=== PATIENT | female | born 1935 | race African-American/Black ===

== ENCOUNTER 2021-03-24 17:13 | Inpatient (IN) | payer MEDICARE, BC ==
[~2021-03-24] VITALS: Ht 162.6 cm; Wt 61.2 kg
[2021-03-24 17:57] LABS: BASOPHILS % (AUTO) 0.3 % (0.0-2.0); EOSINOPHILS % (AUTO) 0.4 % (0.0-6.0); HEMATOCRIT 41 % (33-45); HEMOGLOBIN 13.4 g/dL (11.5-14.8); LYMPHOCYTES % (AUTO) 15.4 % (20.0-44.0); MEAN CORPUSCULAR HGB CONC 32 g/dl (31.0-36.0); MEAN CORPUSCULAR VOLUME 91 fL (82-100); MONOCYTES # (AUTO) 1.4 K/uL (0.1-1.30); MONOCYTES % (AUTO) 10.8 % (2.0-12.0); NEUTROPHILS # (AUTO) 9.4 K/uL (1.8-8.9); NEUTROPHILS % (AUTO) 73.1 % (43.0-81.0); PLATELET COUNT (AUTO) 216 K/uL (150-450); RED BLOOD CELL COUNT(AUTO) 4.56 MIL/uL (4.0-5.2); WHITE BLOOD COUNT (AUTO) 12.9 K/uL (4.3-11.0)
[2021-03-24 17:58] LABS: BILIRUBIN,URINE Negative (NEGATIVE); COLOR,URINE YELLOW (YELLOW); LEUKOCYTE ESTERASE ,URINE Negative (NEGATIVE); NITRITE, URINE Negative (NEGATIVE); PH,URINE 5.5 (5.0-8.0); PROTEIN,URINE Negative (NEGATIVE); UGLUCOSE Negative (NEGATIVE); UROBILINOGEN,URINE 0.2 EU/dL (0.2)
--- NOTE | 2021-03-24 17:59 | NUR ---
85 years old female sent to er for evaluation, patient sedated unable to obtain history, lab, urine collected, placed on fashion adviser, continuous pulse oximeter.
[2021-03-24 18:09] LABS: ACETAMINOPHEN < 10 ug/ml (10-30); ALANINE AMINOTRANSFERASE 13 U/L (12-78); ALCOHOL, BLOOD < 3 mg/dL (0-0); ALKALINE PHOSPHATASE 90 U/L (46-116); ASPARTATE AMINOTRANSFERASE 11 U/L (15-37); BILIRUBIN,DIRECT 0.2 mg/dL (0.0-0.2); BILIRUBIN,TOTAL 1.1 mg/dL (0.2-1.0); CALCIUM, SERUM 12.4 mg/dL (8.5-10.1); CARBON DIOXIDE 26 mmol/L (21-32); CHLORIDE 105 mmol/L (98-107); GLUCOSE 110 mg/dL (74-106); POTASSIUM 4.6 mmol/L (3.5-5.1); SODIUM SERUM 141 mmol/L (136-145); TOTAL PROTEIN, SERUM 6.7 g/dL (6.4-8.2); UREA NITROGEN, BLOOD 17 mg/dL (7-18)
[2021-03-24] MEDS ORDERED: NA P133E RC (18:14)
[2021-03-24] MEDS ORDERED: RISP0.5T65 PO (18:14)
[2021-03-24] MEDS ORDERED: CALC3.7S NS (18:14)
[2021-03-24] MEDS ORDERED: MULT-188 PO (18:14)
[2021-03-24] MEDS ORDERED: ATOR40TA PO (18:14)
[2021-03-24] MEDS ORDERED: CINA30TA2 PO (18:14)
[2021-03-24] MEDS ORDERED: PANT40TA49 PO (18:14)
[2021-03-24] MEDS ORDERED: AMLO10TA4 PO (18:14)
[2021-03-24] MEDS ORDERED: BISA10SU11 RC (18:14)
[2021-03-24] MEDS ORDERED: METF-440 PO (18:14)
[2021-03-24] MEDS ORDERED: PSYL0.525 PO (18:14)
[2021-03-24] MEDS ORDERED: ACET325T53 PO (18:14)
[2021-03-24] MEDS ORDERED: MAGN400O6 PO (18:14)
[2021-03-24] MEDS ORDERED: DOCU-141 PO (18:14)
[2021-03-24] MEDS ORDERED: AMIN887L PO (18:14)
--- NOTE | 2021-03-24 18:40 | NUR ---
MOVE SHEET SUBMITTED.
--- NOTE | 2021-03-24 18:42 | NUR ---
covid swab collected/sent.
--- NOTE | 2021-03-24 19:13 | NUR ---
patient very confused removed all clothes, report given to 7pm RN at bedside all questions answered.
--- NOTE | 2021-03-24 19:15 | NUR ---
rec'd report from karli Somers for sugey
--- NOTE | 2021-03-24 20:04 | NUR ---
RUBEN 222-B
--- NOTE | 2021-03-24 20:12 | NUR ---
CALLED [facility] FIELD MERCHANDISER AND LEFT A MESSAGE FOR REQUESTING PSYCH EVALUATION.
--- NOTE | 2021-03-24 20:15 | NUR ---
SPOKE TO WELFARE MANAGER BENI REGARDING PSYCH EVAL ETA 1HR.
--- NOTE | 2021-03-24 21:52 | NUR ---
attempted to give report, rn with pt.
[2021-03-24] MEDS ORDERED: DEXTROSE 50%-WATER 50 ML DISP.SYRIN IV PRN (22:00)
[2021-03-24] MEDS: ATORVASTATIN 40 MG TABLET PO SCH (22:00)
--- NOTE | 2021-03-24 22:08 | NUR ---
gave report to karli Costello for sugey
[2021-03-24 22:45] VITALS: BP 134/63
[2021-03-24] MEDS: BLOOD SUGAR DIAGNOSTIC 1 EACH STRIP IN SCH (23:15)
--- NOTE | 2021-03-24 23:17 | NUR ---
RN NOTE: HELD LIPITOR PATIENT IS SLEEPING AT THIS TIME, VERY CONFUSED, UNABLE TO FOLLOW DIRECTIONS, ATTEMPTED TO ENCOURAGE PO INTAKE BUT PATIENT IS IN A DEEP SLEEP. HELD LIPITOR AT THIS TIME. WILL MONITOR CLOSELY FOR ANY CHANGE OF CONDITION.
[2021-03-24] MEDS ORDERED: LORAZEPAM 0.5 MG TABLET PO PRN (23:30)
[2021-03-24] MEDS ORDERED: ZOLPIDEM TARTRATE 5 MG TABLET PO PRN (23:30)
[2021-03-24] MEDS ORDERED: ACETAMINOPHEN 325 MG TABLET PO PRN (23:30)
[2021-03-24] MEDS ORDERED: BLOOD SUGAR DIAGNOSTIC 1 EACH STRIP IN ONE (23:30)
[2021-03-24] MEDS ORDERED: MAGNESIUM HYDROXIDE 30 ML UDC PO PRN (23:30)
--- NOTE | 2021-03-25 01:30 | NUR ---
GPS CORPORATE COMMUNICATIONS SPECIALIST NOTE RECEIVED 85 Y/O FEMALE PATIENT FROM [facility]. PATIENT ARRIVED ON GPS UNIT AT 2230 VIA GURNEY WITH NURSES. PATIENT ADMITTED ON A 5150 HOLD FOR DTS/GD. PER HOLD WHEN PATIENT ARRIVED AT [facility] ER, SHE WAS YELLING, SCREAMING & EXTREMELY CONFUSED. PER SNF RN RICHARD, PATIENT BROKE HER GLASSES TODAY AT THE FACILITY & THEN USED HER GLASSES TO CUT HER RIGHT ARM, SHE HAS 3 SCRATCHES TO HER UPPER RIGHT ARM FROM CUTTING HERSELF WITH HER EYE GLASSES. SHE HAS BEEN TAKING OFF HER CLOTHES WHILE IN ER, SCREAMING, REFUSING TO GIVE ANY INFORMATION. SHE IS NOT SAFE FOR DISCHARGE, SHE IS IMPULSIVE & UNPREDICTABLE. UPON FACE TO FACE ASSESSMENT PATIENT IS A & O X 1, EXTREMELY CONFUSED, FORGETFUL, ANXIOUS, AGITATED, UNPREDICTABLE, RESTLESS, DISHEVELED, DISORGANIZED, NO S/S OF PAIN. NO S/S OF APPARENT DISTRESS NOTED. PATIENT DENIES SI AT THIS TIME. PER SNF NURSE EDGARDO REPORT, PT. IS AMBULATORY WITH WALKER/UNSTEADY, HIGH FALL RISK. INCONTINENT. PATIENT REFUSED TO SIGNS ANY PAPER WORK DUE TO CURRENT MENTAL STATUS. PATIENT ADVISED OF HIS HOLD AND RIGHTS BOOKLET GIVEN. PATIENT IS UNDER THE PSYCHIATRIC CARE OF DR. HORNE AND THE MEDICAL CARE OF AIMEE PATTERSON. PATIENT BELONGINGS WERE INVENTORIED AND CHECKED FOR CONTRABAND. PATIENT CAME WITH COPY OF ADVANCED DIRECTIVES (POLTS), FULL BODY SKIN ASSESSMENT DONE, PATIENT BECOMES UNCOOPERATIVE & AGITATED AT TIMES. PATIENT ORIENTATED TO ROOM, FLOOR, AND STAFF. PATIENT EDUCATED ON THE USE OF THE CALL LIGHT. PATIENT BED SIDE RAILS ARE UP X 2 FOR SAFETY. PATIENT IS UNABLE TO PROVIDE ANY INFORMATION ABOUT COVID 19 VACCINE. BED IS LOW/LOCKED. BED ALARM IS ON. I WILL CONTINUE TO MONITOR THIS PATIENT Q 15 MIN WITH THE HELP OF STAFF TO MAINTAIN SAFETY.
--- NOTE | 2021-03-25 01:43 | NUR ---
RN NOTE PATIENT HAS COPY OF POLTS, NOTIFIED LEONARDO YU & LEONARDO ORDERED TO FOLLOW POLTS INSTRUCTIONS FOR CODE STATUS. PER POLTS PATIENT IS DNR/DNI.
[2021-03-25] MEDS ORDERED: Z GUARD REMEDY 4 OZ OINT TP PRN (02:30)
--- NOTE | 2021-03-25 06:58 | NUR ---
RN NOTE: FAMILY NOTIFIED CALLED TEIVN GUILLERMO (SISTER) AT [phone] & INFORMED HER ABOUT PATIENT'S ADMISSION AT [facility] GPS UNIT. TEVIN ALSO STATED THAT SHE WANTS DR. HORNE TO BE PATIENT'S PSYCHIATRIST DURING HER HOSPITAL STAY AT [facility], NOT DR. WILLS. PER TEVIN PATIENT WILL BE DNR/DNI, PER PATIENT'S WISH. CODE STATUS ORDER IN PLACE.
[2021-03-25] MEDS: PANTOPRAZOLE 40 MG TABLET.DR PO SCH (07:30)
[2021-03-25] MEDS: BLOOD SUGAR DIAGNOSTIC 1 EACH STRIP IN SCH ×4 (07:30→22:17)
--- NOTE | 2021-03-25 07:39 | NUR ---
RN NOTE PATIENT REFUSED AM LABS DESPITE OF EXPLANATIONS, PATIENT KEPT SAYING," NOT TODAY,MAY BE TOMORROW."
--- NOTE | 2021-03-25 07:40 | NUR ---
RN NOTE ENDORSED TO AM RN THAT PATIENT'S SISTER REQUESTED TO HAVE DR. HORNE PATIENT'S PSYCHIATRIST.
[2021-03-25 08:00] VITALS: BP 122/63
[2021-03-25] MEDS: DOCUSATE SODIUM 100 MG CAPSULE PO SCH ×3 (09:00→21:52)
[2021-03-25] MEDS: CALCITONIN,SALMON,SYNTHETIC 3.7 ML SPRAY.PUMP NS SCH (09:00)
[2021-03-25] MEDS: MULTIVITAMINS,THERAGRAN 1 UDTAB TABLET PO SCH (09:00)
[2021-03-25] MEDS: AMLODIPINE BESYLATE 10 MG TABLET PO SCH ×2 (09:00→09:54)
[2021-03-25] MEDS: PROSOURCE / PROSTAT (PYXIS) 30 ML UDC PO SCH (09:00)
[2021-03-25] MEDS: CINACALCET HCL 30 MG TABLET PO SCH ×3 (09:00→17:00)
[2021-03-25] MEDS: Z GUARD REMEDY 2 OZ OINT TP SCH (09:53)
[2021-03-25] MEDS: DIVALPROEX SODIUM 125 MG CAP.SPRINK PO SCH ×2 (13:00→17:00)
[2021-03-25 16:00] VITALS: BP 129/66
[2021-03-25] MEDS: risperiDONE 1 MG TABLET PO SCH (17:00)
[2021-03-25 20:31] VITALS: BP 122/63
[2021-03-25] MEDS: ATORVASTATIN 40 MG TABLET PO SCH (21:52)
--- NOTE | 2021-03-25 22:00 | NUR ---
GPS RN NOTE AMBIEN 5 MG PO GIVEN FOR INSOMNIA. CONTINUE TO MONITOR HER.
[2021-03-25] MEDS: INSULIN REGULAR, HUMAN 100 UNIT/ML 3 ML VIAL SQ PRN (22:19)
--- NOTE | 2021-03-25 23:00 | NUR ---
GPS RN NOTE PT FALL BACK TO SLEEP, IN HER BED.
[2021-03-26] MEDS: PANTOPRAZOLE 40 MG TABLET.DR PO SCH (07:30)
[2021-03-26] MEDS: BLOOD SUGAR DIAGNOSTIC 1 EACH STRIP IN SCH ×4 (07:47→22:15)
[2021-03-26 08:00] VITALS: BP 119/56
[2021-03-26] MEDS: AMLODIPINE BESYLATE 10 MG TABLET PO SCH (09:00)
[2021-03-26] MEDS: DOCUSATE SODIUM 100 MG CAPSULE PO SCH ×2 (09:00→21:00)
[2021-03-26] MEDS: risperiDONE 1 MG TABLET PO SCH ×2 (09:00→17:00)
[2021-03-26] MEDS: MULTIVITAMINS,THERAGRAN 1 UDTAB TABLET PO SCH (09:00)
[2021-03-26] MEDS: CINACALCET HCL 30 MG TABLET PO SCH ×2 (09:00→17:00)
[2021-03-26] MEDS: DIVALPROEX SODIUM 125 MG CAP.SPRINK PO SCH ×3 (09:00→17:00)
[2021-03-26] MEDS: CALCITONIN,SALMON,SYNTHETIC 3.7 ML SPRAY.PUMP NS SCH (09:00)
[2021-03-26] MEDS: PROSOURCE / PROSTAT (PYXIS) 30 ML UDC PO SCH (09:00)
[2021-03-26] MEDS: Z GUARD REMEDY 2 OZ OINT TP SCH (09:04)
--- NOTE | 2021-03-26 11:00 | NUR ---
PT REFUSES MEDICATION AND NOURISHMENT. DR ELMA TINAJERO.
--- NOTE | 2021-03-26 12:12 | NUR ---
BLOOD SUGAR DONE 134. WILL NOT COVER AT THIS TIME PT IS NOT FOOD COMPLIANT. REFUSES TO EAT.
--- NOTE | 2021-03-26 14:18 | NUR ---
URINE COLLECTED FOR CULTURE. LAB AWARE.
[2021-03-26 15:29] LABS: ALBUMIN 2.7 g/dL (3.4-5.0); BILIRUBIN,TOTAL 0.9 mg/dL (0.2-1.0); CALCIUM, SERUM 11.7 mg/dL (8.5-10.1); CREATININE 1.1 mg/dL (0.6-1.3); POTASSIUM 3.9 mmol/L (3.5-5.1); TOTAL PROTEIN, SERUM 6.5 g/dL (6.4-8.2)
[2021-03-26 15:31] LABS: CHOLESTEROL 158 mg/dL (<200); HDL CHOLESTEROL 50 mg/dL (40-60); LDL 78 mg/dL (0-99); TRIGLYCERIDES 85 mg/dL (30-150)
[2021-03-26 16:00] VITALS: BP 136/73
--- NOTE | 2021-03-26 17:59 | NUR ---
BICYCLE REPAIR TECHNICIAN FOUND PATIENT ROLLING BLANKET INTO HER MOUTH. PT SHOWED REDNESS IN THE FACE. PATIENT STATES THAT SHE WAS CLEANING HER MOUTH. CHARGE NURSE AWARE. WILL ENDORSE ACCORDINGLY. NO SIGNS OF DISTRESS NOTED.
[2021-03-26 20:00] VITALS: BP 154/78
[2021-03-26] MEDS: ATORVASTATIN 40 MG TABLET PO SCH (21:50)
--- NOTE | 2021-03-26 21:50 | NUR ---
GPS RN NOTES: PATIENT REFUSED PM MEDS COLACE 100MG AND LIPITOR 40MG ORDERED. WILL CONTINUE TO MONITOR.
--- NOTE | 2021-03-27 06:57 | NUR ---
GPS RN CLOSING NOTE: PATIENT IS CURRENTLY SLEEPING COMFORTABLY IN BED. PATIENT SLEPT 5HR THIS SHIFT. PATIENT WAS NON COMPLIANT WITH MEDICATION THIS SHIFT. NO S/S OF DISTRESS, RESPIRATION EVEN AND UNLABORED WITH EQUAL RISE AND FALL OF THE CHEST, ON ROOM AIR. BED IN LOWEST POSITION AND LOCKED, SIDE RAILS UP X2. ALL PATIENT CARE NEEDS HAVE BEEN MET AT THIS TIME. WILL CONTINUE TO MONITOR AND ENDORSE TO AM SHIFT.
[2021-03-27] MEDS: BLOOD SUGAR DIAGNOSTIC 1 EACH STRIP IN SCH ×4 (07:42→21:39)
[2021-03-27] MEDS: PANTOPRAZOLE 40 MG TABLET.DR PO SCH (07:56)
[2021-03-27 08:00] VITALS: BP 133/68
[2021-03-27] MEDS: MULTIVITAMINS,THERAGRAN 1 UDTAB TABLET PO SCH (08:32)
[2021-03-27] MEDS: CINACALCET HCL 30 MG TABLET PO SCH ×2 (08:32→16:09)
[2021-03-27] MEDS: DIVALPROEX SODIUM 125 MG CAP.SPRINK PO SCH ×3 (08:32→16:09)
[2021-03-27] MEDS: DOCUSATE SODIUM 100 MG CAPSULE PO SCH ×2 (08:32→21:39)
[2021-03-27] MEDS: AMLODIPINE BESYLATE 10 MG TABLET PO SCH (08:34)
[2021-03-27] MEDS: risperiDONE 1 MG TABLET PO SCH ×2 (08:34→16:09)
[2021-03-27] MEDS: PROSOURCE / PROSTAT (PYXIS) 30 ML UDC PO SCH (08:37)
[2021-03-27] MEDS: Z GUARD REMEDY 2 OZ OINT TP SCH (08:38)
[2021-03-27] MEDS: CALCITONIN,SALMON,SYNTHETIC 3.7 ML SPRAY.PUMP NS SCH (09:26)
--- NOTE | 2021-03-27 10:07 | NUR ---
RN NOTE- PT UA CX RETURNED . UTI PRESENT. DR LEE ORDERED BACTRIM DS BID X 7 D. COMPLIED
[2021-03-27] MEDS: SULFAMETH/TRIMETH 800/160 MG 1 UDTAB TABLET PO SCH ×2 (11:30→21:00)
[2021-03-27] MEDS: INSULIN REGULAR, HUMAN 100 UNIT/ML 3 ML VIAL SQ PRN (11:56)
--- NOTE | 2021-03-27 13:43 | NUR ---
D/C Planning: KATHRYN received a call from Fallon at [facility]. KATHRYN was notified that the patient will not be able to return to the facility as they are unable to accommodate the patient's needs at this time. Fallon recommended that the patient be referred to [facility] and stated that the patient currently has 74 days left from Medicare. KATHRYN faxed clinicals to [facility], & [phone], for review.
[2021-03-27 15:04] LABS: BASOPHILS % (AUTO) 0.4 % (0.0-2.0); HEMATOCRIT 41 % (33-45); HEMOGLOBIN 13.1 g/dL (11.5-14.8); LYMPHOCYTES # (AUTO) 1.8 K/uL (0.8-4.8); LYMPHOCYTES % (AUTO) 15.7 % (20.0-44.0); MEAN CORPUSCULAR HGB CONC 32 g/dl (31.0-36.0); MEAN CORPUSCULAR VOLUME 92 fL (82-100); MONOCYTES # (AUTO) 1.2 K/uL (0.1-1.30); MONOCYTES % (AUTO) 10.5 % (2.0-12.0); NEUTROPHILS # (AUTO) 8.5 K/uL (1.8-8.9); NEUTROPHILS % (AUTO) 72.4 % (43.0-81.0); PLATELET COUNT (AUTO) 231 K/uL (150-450); RED BLOOD CELL COUNT(AUTO) 4.42 MIL/uL (4.0-5.2); WHITE BLOOD COUNT (AUTO) 11.7 K/uL (4.3-11.0)
--- NOTE | 2021-03-27 15:12 | NUR ---
D/C Planning: KATHRYN received a call from Claudia in admissions, at [facility]. Claudia notified KATHRYN that the patient has been accepted to [facility] (ph: [phone]).
[2021-03-27 15:24] LABS: ALBUMIN 2.5 g/dL (3.4-5.0); BILIRUBIN,TOTAL 0.8 mg/dL (0.2-1.0); CALCIUM, SERUM 11.9 mg/dL (8.5-10.1); CREATININE 1.1 mg/dL (0.6-1.3); POTASSIUM 4.2 mmol/L (3.5-5.1); TOTAL PROTEIN, SERUM 6.4 g/dL (6.4-8.2)
[2021-03-27 16:00] VITALS: BP 137/69
--- NOTE | 2021-03-27 19:30 | NUR ---
RN OPENING NOTE PATIENT SLEEPING, EASILY AROUSED WITH VERBAL AND TOUCH CUES. PATIENT IS CONFUSED, A/O X 1. PATIENT DID NOT WANT TO BE AWAKEN AGAIN AND SAYS SHE JUST WANT TO BE SLEEPING. PATIENT IS NOT IN ANY APPARENT DISTRESS. DENIES SI/HI AT THIS TIME. SAFETY MEASURES IN PLACE: BED IN LOCKED AND IN LOWEST POSITION, SIDE RAILS UP. WILL MONITOR PATIENT FOR SAFETY AND BEHAVIOR.
[2021-03-27 20:00] VITALS: BP 127/63
--- NOTE | 2021-03-27 21:40 | NUR ---
RN NOTE PATIENT REFUSED BACTRIM AND LIPITOR. PATIENT STATES THAT SHE SHOULD ONLY BE TAKING THE BACTRIM ONCE A DAY BECAUSE IT'S A VERY STRONG ANTIBIOTIC. I INFORMED HER THAT THIS IS FOR HER UTI, AND THAT SHE'S SUPPOSED TO GET A DOSE Q12 H ORDERED BY THE DOCTOR, EXPLAINED RISK AND BENEFITS WELL. STILL REFUSING. BS IS 115 MG/DL. NO COVERAGE GIVEN.
[2021-03-27] MEDS: ATORVASTATIN 40 MG TABLET PO SCH (21:44)
[2021-03-28] MEDS: PANTOPRAZOLE 40 MG TABLET.DR PO SCH (07:30)
[2021-03-28] MEDS: BLOOD SUGAR DIAGNOSTIC 1 EACH STRIP IN SCH ×4 (07:41→22:08)
[2021-03-28 08:00] VITALS: BP 113/50
[2021-03-28] MEDS: SULFAMETH/TRIMETH 800/160 MG 1 UDTAB TABLET PO SCH ×3 (08:02→21:22)
[2021-03-28] MEDS: DOCUSATE SODIUM 100 MG CAPSULE PO SCH ×3 (08:02→21:22)
[2021-03-28] MEDS: AMLODIPINE BESYLATE 10 MG TABLET PO SCH (08:03)
[2021-03-28] MEDS: CINACALCET HCL 30 MG TABLET PO SCH ×2 (08:04→17:00)
[2021-03-28] MEDS: MULTIVITAMINS,THERAGRAN 1 UDTAB TABLET PO SCH (08:05)
[2021-03-28] MEDS: risperiDONE 1 MG TABLET PO SCH ×2 (08:07→17:00)
[2021-03-28] MEDS: DIVALPROEX SODIUM 125 MG CAP.SPRINK PO SCH ×3 (08:07→17:00)
[2021-03-28] MEDS: CALCITONIN,SALMON,SYNTHETIC 3.7 ML SPRAY.PUMP NS SCH (08:11)
[2021-03-28] MEDS: PROSOURCE / PROSTAT (PYXIS) 30 ML UDC PO SCH (08:16)
[2021-03-28] MEDS: Z GUARD REMEDY 2 OZ OINT TP SCH (08:17)
--- NOTE | 2021-03-28 09:30 | NUR ---
Initial Discharge Plan: Pt would like to be D/C to a SNF. Pt is agreeable to be D/C to [facility] ([phone]). SW will work with the pt and the MD regarding appropriate discharge planning. SW will form a safe and proper discharge.
--- NOTE | 2021-03-28 12:15 | NUR ---
DR WILLS FILED A RIESE PETITION FOR PATIENT PATIENT REFUSES TO TAKE MEDICATION.. FAB IS SCHEDULED FOR TOMORROW 03/29/21. DR WILLS AWARE.
[2021-03-28 16:38] VITALS: BP 119/66
--- NOTE | 2021-03-28 18:00 | NUR ---
BS: 0730: 107 NC 1200: 106 NC 1700: 104 NC BLOOD SUGAR METER NOT TRANSMITTING INFO. NOC SHIFT RN AWARE
[2021-03-28 19:57] VITALS: BP 128/57
[2021-03-28] MEDS: ATORVASTATIN 40 MG TABLET PO SCH (22:00)
--- NOTE | 2021-03-28 22:00 | NUR ---
GPS-RN NOTES: MEDICATION REFUSAL PATIENT REFUSED SCHEDULED MEDS FOR TONIGHT BACTRIM, LIPITOR AND COLACE. DESPITE OF EDUCATION REGARDING MEDICATION COMPLIANCE BUT PATIENT CONTINUED TO REFUSE. WILL CONTINUE TO MONITOR.
[2021-03-29] MEDS: BLOOD SUGAR DIAGNOSTIC 1 EACH STRIP IN SCH ×4 (07:31→21:54)
[2021-03-29 08:00] VITALS: BP 129/68
--- NOTE | 2021-03-29 09:10 | NUR ---
Family Contact: SW received a call from pts sister, Gosia Collins, . Pts sister requested for SW to locate SNF closer to the family's home as the pts family lives in [place]. Pts sister agrees to [facility] if alternative SNF's are not accepting. SW will f/u with D/C update.
[2021-03-29] MEDS: PANTOPRAZOLE 40 MG TABLET.DR PO SCH (09:19)
[2021-03-29] MEDS: CINACALCET HCL 30 MG TABLET PO SCH ×2 (09:20→16:44)
[2021-03-29] MEDS: MULTIVITAMINS,THERAGRAN 1 UDTAB TABLET PO SCH (09:20)
[2021-03-29] MEDS: SULFAMETH/TRIMETH 800/160 MG 1 UDTAB TABLET PO SCH (09:20)
[2021-03-29] MEDS: DOCUSATE SODIUM 100 MG CAPSULE PO SCH ×2 (09:20→21:54)
[2021-03-29] MEDS: DIVALPROEX SODIUM 125 MG CAP.SPRINK PO SCH ×3 (09:20→16:44)
[2021-03-29] MEDS: risperiDONE 1 MG TABLET PO SCH ×2 (09:21→21:53)
[2021-03-29] MEDS: AMLODIPINE BESYLATE 10 MG TABLET PO SCH (09:21)
[2021-03-29] MEDS: PROSOURCE / PROSTAT (PYXIS) 30 ML UDC PO SCH (09:22)
[2021-03-29] MEDS: Z GUARD REMEDY 2 OZ OINT TP SCH (09:22)
[2021-03-29] MEDS: CALCITONIN,SALMON,SYNTHETIC 3.7 ML SPRAY.PUMP NS SCH (09:35)
--- NOTE | 2021-03-29 09:50 | NUR ---
D/C Planning: Per pts family request, KATHRYN faxed clinicals to alternative SNF closer to the family's home. KATHRYN faxed clinicals to [facility], , for review. KATHRYN will continue to F/U with D/C.
[2021-03-29] MEDS ORDERED: OLANZAPINE 10 MG VIAL IM PRN (15:00)
[2021-03-29] MEDS: AMOX/CLAVULANATE 875 MG TABLET PO SCH ×2 (15:09→23:45)
[2021-03-29 16:00] VITALS: BP 117/61
[2021-03-29] MEDS: INSULIN REGULAR, HUMAN 100 UNIT/ML 3 ML VIAL SQ PRN (17:17)
--- NOTE | 2021-03-29 17:39 | NUR ---
BS is 140 refused for 2 units of Humulin R.
[2021-03-29 19:56] VITALS: BP 137/67
[2021-03-29 20:10] VITALS: BP 137/67
[2021-03-29] MEDS: ATORVASTATIN 40 MG TABLET PO SCH (21:54)
--- NOTE | 2021-03-29 22:30 | NUR ---
RN NOTE PATIENT'S AUGMENTIN IS NOT AVAILABLE ON GPS UNIT. NOTIFIED NURSING CONCERT OR LECTURE HALL MANAGER & WILL GET IT FROM CONCERT OR LECTURE HALL MANAGER.
[2021-03-29] MEDS ORDERED: AMOX/CLAVULANATE 875 MG TABLET ONE (22:54)
--- NOTE | 2021-03-29 23:56 | NUR ---
RN NOTE AUGMENTIN WAS PROVIDED BY THE DIRECTOR CARDIOLOGY & ADMINISTERED TO THE PATIENT & TOLERATED WELL.
[2021-03-30 08:00] VITALS: BP 110/63
[2021-03-30] MEDS: BLOOD SUGAR DIAGNOSTIC 1 EACH STRIP IN SCH ×4 (08:14→21:57)
[2021-03-30] MEDS: DOCUSATE SODIUM 100 MG CAPSULE PO SCH ×2 (09:18→21:08)
[2021-03-30] MEDS: CINACALCET HCL 30 MG TABLET PO SCH ×2 (09:18→17:11)
[2021-03-30] MEDS: AMLODIPINE BESYLATE 10 MG TABLET PO SCH (09:18)
[2021-03-30] MEDS: PANTOPRAZOLE 40 MG TABLET.DR PO SCH (09:18)
[2021-03-30] MEDS: risperiDONE 1 MG TABLET PO SCH ×2 (09:18→22:27)
[2021-03-30] MEDS: DIVALPROEX SODIUM 125 MG CAP.SPRINK PO SCH ×3 (09:18→17:11)
[2021-03-30] MEDS: MULTIVITAMINS,THERAGRAN 1 UDTAB TABLET PO SCH (09:18)
[2021-03-30] MEDS: PROSOURCE / PROSTAT (PYXIS) 30 ML UDC PO SCH (09:20)
[2021-03-30] MEDS: AMOX/CLAVULANATE 875 MG TABLET PO SCH ×2 (09:20→17:11)
[2021-03-30] MEDS: Z GUARD REMEDY 2 OZ OINT TP SCH (09:25)
[2021-03-30] MEDS: CALCITONIN,SALMON,SYNTHETIC 3.7 ML SPRAY.PUMP NS SCH (11:08)
--- NOTE | 2021-03-30 13:14 | NUR ---
RN-NOTES PATIENT REFUSED DEPAKOTE SPRINKLE 125MG P.O DESPITE EXPLANATION RISK AND BENEFITS. OFFERED X3.
--- NOTE | 2021-03-30 15:37 | NUR ---
SS Note: SW received a call from pts sister, Gosia Collins, requesting for nursing to provide the pt.'s brother, Christiano Iniguez [phone] with updates regarding pt.'s condition. KATHRYN notified charge nurse for this contact to be added to facesheet. Real Estate Agent to follow up over the weekend.
[2021-03-30 16:00] VITALS: BP 119/59
--- NOTE | 2021-03-30 16:05 | NUR ---
D/C planning: KATHRYN received callf rom Davin at [facility] [phone] requesting progress notes from the last 72 hours. KATHRYN faxed clinicals to [facility], , for review.
[2021-03-30 20:23] VITALS: BP 102/52
[2021-03-30] MEDS: ATORVASTATIN 40 MG TABLET PO SCH (21:08)
[2021-03-30] MEDS: MAG HYDROX/AL HYDROX/SIMETH 30 ML UDC PO PRN (21:16)
[2021-03-30 21:26] VITALS: BP 112/65
[2021-03-30] MEDS ORDERED: OLANZAPINE 10 MG VIAL IM PRN (23:00)
[2021-03-31] MEDS: BLOOD SUGAR DIAGNOSTIC 1 EACH STRIP IN SCH ×4 (07:52→21:34)
[2021-03-31 08:00] VITALS: BP 113/52
[2021-03-31] MEDS: CINACALCET HCL 30 MG TABLET PO SCH ×3 (08:05→17:00)
[2021-03-31] MEDS: risperiDONE 1 MG TABLET PO SCH (08:05)
[2021-03-31] MEDS: MULTIVITAMINS,THERAGRAN 1 UDTAB TABLET PO SCH (08:05)
[2021-03-31] MEDS: PANTOPRAZOLE 40 MG TABLET.DR PO SCH (08:05)
[2021-03-31] MEDS: DOCUSATE SODIUM 100 MG CAPSULE PO SCH ×2 (08:06→20:46)
[2021-03-31] MEDS: DIVALPROEX SODIUM 125 MG CAP.SPRINK PO SCH (08:06)
[2021-03-31] MEDS: PROSOURCE / PROSTAT (PYXIS) 30 ML UDC PO SCH (08:07)
[2021-03-31] MEDS: AMOX/CLAVULANATE 875 MG TABLET PO SCH ×3 (08:07→17:00)
[2021-03-31] MEDS: CALCITONIN,SALMON,SYNTHETIC 3.7 ML SPRAY.PUMP NS SCH (08:08)
[2021-03-31] MEDS: AMLODIPINE BESYLATE 10 MG TABLET PO SCH (08:09)
[2021-03-31] MEDS ORDERED: OLANZAPINE 10 MG VIAL IM ONE (09:00)
[2021-03-31] MEDS ORDERED: OLANZAPINE 10 MG VIAL IM PRN (09:30)
[2021-03-31] MEDS: Z GUARD REMEDY 2 OZ OINT TP SCH (09:34)
[2021-03-31] MEDS ORDERED: PALIPERIDONE PALMITATE 117 MG/0.75 ML SYRINGE IM ONE (11:00)
--- NOTE | 2021-03-31 15:32 | NUR ---
Pt. refused for TS ultrasound, was explained on the importance and insisted saying "No"
[2021-03-31 16:00] VITALS: BP 132/70
--- NOTE | 2021-03-31 17:06 | NUR ---
Pt. refused meds due for 0. Explained on the importance and strongly refusing not take the meds
--- NOTE | 2021-03-31 20:53 | NUR ---
RN NOTES: PT. REFUSED FOR TS ULTRASOUND , ENCOURAGED X3 STILL REFUSED.
[2021-03-31] MEDS ORDERED: risperiDONE 1 MG TABLET PO ONE (21:00)
[2021-03-31 21:08] VITALS: BP 125/58
[2021-03-31] MEDS: ATORVASTATIN 40 MG TABLET PO SCH (21:11)
[2021-04-01] MEDS: PANTOPRAZOLE 40 MG TABLET.DR PO SCH (07:30)
[2021-04-01] MEDS: BLOOD SUGAR DIAGNOSTIC 1 EACH STRIP IN SCH ×4 (07:30→22:01)
[2021-04-01 08:00] VITALS: BP 122/58
[2021-04-01] MEDS: CALCITONIN,SALMON,SYNTHETIC 3.7 ML SPRAY.PUMP NS SCH (09:00)
[2021-04-01] MEDS: DOCUSATE SODIUM 100 MG CAPSULE PO SCH ×2 (09:00→21:45)
[2021-04-01] MEDS ORDERED: PALIPERIDONE PALMITATE 117 MG/0.75 ML SYRINGE IM ONE (09:00)
[2021-04-01] MEDS: Z GUARD REMEDY 2 OZ OINT TP SCH ×2 (09:00)
[2021-04-01] MEDS: AMOX/CLAVULANATE 875 MG TABLET PO SCH ×2 (09:00→16:29)
[2021-04-01] MEDS: PROSOURCE / PROSTAT (PYXIS) 30 ML UDC PO SCH (09:00)
[2021-04-01] MEDS: AMLODIPINE BESYLATE 10 MG TABLET PO SCH (09:00)
[2021-04-01] MEDS: CINACALCET HCL 30 MG TABLET PO SCH ×2 (09:00→16:29)
[2021-04-01] MEDS: MULTIVITAMINS,THERAGRAN 1 UDTAB TABLET PO SCH (09:00)
[2021-04-01] MEDS ORDERED: PAMIDRONATE 90 MG in IV NS 0.9% 500 ML IV ONE ×2 (09:30→15:30)
--- NOTE | 2021-04-01 15:39 | NUR ---
RN NOTE :PATIENT STATED "I DON'T WANT NEEDLE IN MY HAND YOU WANT TO K
--- NOTE | 2021-04-01 15:42 | NUR ---
RN NOTE :PATIENT STATED "I DON'T WANT NEEDLE IN MY HAND YOU WANT TO KILL ME ,ENCOURAGE PATIENT TO COMPLY BUT STILL REFUSED . notified PATIENT REFUSED HEP LOCK AND AREDIA 90MG IV,LEFT MASSAGE FOR BAND DIRECTOR DR. NATHANIEL MOHAMUD .PATIENT REFUSED LAB DRAW CBC AND BMP VILLA FERNANDEZ NOTIFIED .
[2021-04-01 16:00] VITALS: BP 133/63
[2021-04-01] MEDS: INSULIN REGULAR, HUMAN 100 UNIT/ML 3 ML VIAL SQ PRN ×2 (17:37→22:00)
[2021-04-01 20:32] VITALS: BP 114/62
[2021-04-01] MEDS: ATORVASTATIN 40 MG TABLET PO SCH (21:45)
[2021-04-02 01:34] LABS: BASOPHILS # (AUTO) 0.1 K/uL (0.0-0.2); BASOPHILS % (AUTO) 0.7 % (0.0-2.0); EOSINOPHILS % (AUTO) 3.6 % (0.0-6.0); HEMATOCRIT 39 % (33-45); HEMOGLOBIN 12.6 g/dL (11.5-14.8); LYMPHOCYTES # (AUTO) 1.8 K/uL (0.8-4.8); LYMPHOCYTES % (AUTO) 19.4 % (20.0-44.0); MEAN CORPUSCULAR HGB CONC 33 g/dl (31.0-36.0); MEAN CORPUSCULAR VOLUME 91 fL (82-100); MONOCYTES # (AUTO) 1.1 K/uL (0.1-1.30); MONOCYTES % (AUTO) 12.1 % (2.0-12.0); NEUTROPHILS # (AUTO) 5.9 K/uL (1.8-8.9); NEUTROPHILS % (AUTO) 64.2 % (43.0-81.0); PLATELET COUNT (AUTO) 324 K/uL (150-450); RED BLOOD CELL COUNT(AUTO) 4.27 MIL/uL (4.0-5.2); WHITE BLOOD COUNT (AUTO) 9.1 K/uL (4.3-11.0)
[2021-04-02 01:53] LABS: ALBUMIN 2.3 g/dL (3.4-5.0); BILIRUBIN,TOTAL 0.5 mg/dL (0.2-1.0); CALCIUM, SERUM 11.6 mg/dL (8.5-10.1); CREATININE 1.2 mg/dL (0.6-1.3); PHOSPHORUS 2.3 mg/dL (2.5-4.9); POTASSIUM 4.2 mmol/L (3.5-5.1); TOTAL PROTEIN, SERUM 6.4 g/dL (6.4-8.2)
[2021-04-02] MEDS: BLOOD SUGAR DIAGNOSTIC 1 EACH STRIP IN SCH ×4 (07:20→22:00)
[2021-04-02] MEDS: PANTOPRAZOLE 40 MG TABLET.DR PO SCH (07:28)
[2021-04-02 08:39] VITALS: BP 107/52
[2021-04-02] MEDS: MULTIVITAMINS,THERAGRAN 1 UDTAB TABLET PO SCH ×2 (09:00→09:32)
[2021-04-02] MEDS: DOCUSATE SODIUM 100 MG CAPSULE PO SCH ×3 (09:00→21:00)
[2021-04-02] MEDS: CALCITONIN,SALMON,SYNTHETIC 3.7 ML SPRAY.PUMP NS SCH ×2 (09:00→09:34)
[2021-04-02] MEDS: Z GUARD REMEDY 2 OZ OINT TP SCH ×2 (09:00)
[2021-04-02] MEDS: AMLODIPINE BESYLATE 10 MG TABLET PO SCH (09:00)
[2021-04-02] MEDS: CINACALCET HCL 30 MG TABLET PO SCH ×3 (09:00→16:53)
[2021-04-02] MEDS: PROSOURCE / PROSTAT (PYXIS) 30 ML UDC PO SCH (09:00)
[2021-04-02] MEDS: AMOX/CLAVULANATE 875 MG TABLET PO SCH ×3 (09:00→16:53)
--- NOTE | 2021-04-02 09:00 | NUR ---
RN NOTE- PATIENT SLEEPING, EASILY AROUSED WITH VERBAL AND TOUCH CUES. PATIENT IS CONFUSED, A/O X 1. PATIENT DID NOT WANT TO BE AWAKEN AGAIN AND SAYS SHE JUST WANT TO BE SLEEPING. PATIENT IS NOT IN ANY APPARENT DISTRESS. DENIES SI/HI AT THIS TIME. SAFETY MEASURES IN PLACE: BED IN LOCKED AND IN LOWEST POSITION, SIDE RAILS UP. WILL MONITOR PATIENT FOR SAFETY AND BEHAVIOR.
[2021-04-02] MEDS ORDERED: HALOPERIDOL LACTATE INJ 5 MG/ML VIAL IM PRN (09:30)
[2021-04-02] MEDS ORDERED: K PHOS NEUTRAL 250 MG TABLET PO ONE (09:30)
[2021-04-02] MEDS: risperiDONE 1 MG TABLET PO SCH ×2 (10:01→16:53)
--- NOTE | 2021-04-02 10:33 | NUR ---
SS Note: KATHRYN received call from Jose Luis at [facility] [phone] requesting psychiatrist progress notes from the last 72 hours. KATHRYN faxed clinicals to [facility], , for review.
[2021-04-02 16:00] VITALS: BP 120/63
[2021-04-02 20:00] VITALS: BP 109/54
--- NOTE | 2021-04-02 20:00 | NUR ---
RN OPENING NOTE- PATIENT IN BED AWAKE. PATIENT IS CONFUSED, A/O X 1. PT AMIABLE AT THE MOMENT REORIENTED TO DATE AND PLACE. PATIENT IS NOT IN ANY APPARENT DISTRESS. DENIES SI/HI AT THIS TIME. SAFETY MEASURES IN PLACE: BED IN LOCKED AND IN LOWEST POSITION, SIDE RAILS UP BED ALARM ACTIVE. WILL MONITOR PATIENT FOR SAFETY AND BEHAVIOR.
[2021-04-02] MEDS: ATORVASTATIN 40 MG TABLET PO SCH (22:00)
--- NOTE | 2021-04-02 22:28 | NUR ---
PATIENT REFUSED MEDICATION PATIENT STATES, "I DON'T WANT A STOOL SOFTENER AND I DON'T WANT NO CHOLESTEROL MEDICINE. I DONT WANT MY BLOOD SUGAR TAKEN ITS TOO LATE IM GOING TO SLEEP. GOOD NIGHT"
[2021-04-03] MEDS: PANTOPRAZOLE 40 MG TABLET.DR PO SCH (07:30)
[2021-04-03] MEDS: BLOOD SUGAR DIAGNOSTIC 1 EACH STRIP IN SCH ×4 (07:47→22:38)
[2021-04-03 08:00] VITALS: BP 113/55
[2021-04-03] MEDS: AMLODIPINE BESYLATE 10 MG TABLET PO SCH (09:00)
[2021-04-03] MEDS: Z GUARD REMEDY 2 OZ OINT TP SCH ×2 (09:00→09:47)
[2021-04-03] MEDS: Z GUARD REMEDY 2 OZ OINT TP PRN (09:38)
[2021-04-03] MEDS: AMOX/CLAVULANATE 875 MG TABLET PO SCH ×2 (09:38→17:55)
[2021-04-03] MEDS: CALCITONIN,SALMON,SYNTHETIC 3.7 ML SPRAY.PUMP NS SCH (09:38)
[2021-04-03] MEDS: DOCUSATE SODIUM 100 MG CAPSULE PO SCH ×2 (09:45→21:27)
[2021-04-03] MEDS: CINACALCET HCL 30 MG TABLET PO SCH ×2 (09:45→17:54)
[2021-04-03] MEDS: risperiDONE 1 MG TABLET PO SCH ×2 (09:46→17:55)
[2021-04-03] MEDS: MULTIVITAMINS,THERAGRAN 1 UDTAB TABLET PO SCH (09:46)
[2021-04-03] MEDS: PROSOURCE / PROSTAT (PYXIS) 30 ML UDC PO SCH (09:58)
[2021-04-03 16:29] VITALS: BP 111/73
[2021-04-03] MEDS: DIVALPROEX SODIUM 125 MG CAP.SPRINK PO SCH (17:00)
[2021-04-03] MEDS: INSULIN REGULAR, HUMAN 100 UNIT/ML 3 ML VIAL SQ PRN (18:16)
[2021-04-03 19:50] VITALS: BP 101/53
[2021-04-03 20:00] VITALS: BP 101/53
[2021-04-03 20:55] VITALS: BP 107/64
[2021-04-03] MEDS: ATORVASTATIN 40 MG TABLET PO SCH (22:23)
--- NOTE | 2021-04-03 22:43 | NUR ---
RN NOTE: PATIENT'S DEPAKOTE ORDER WAS CHANGED DURING AM SHIFT, PHARMACY REQUESTED CONSENT FORM TO BE FAXED, CONSENT WAS FAXED TO PHARMACY & MEDICATION WAS VERIFIED NOW & SCHEDULED TO BE GIVEN AT 1700. CALLED [facility] IF THEY CAN CHANGE MEDICATION ADMINISTRATION TIME BUT PER REILLY, TIME CAN NOT BE CHANGED. PATIENT IS ASLEEP AT THIS TIME & REFUSING TO TAKE ANY MEDICATION AT THIS TIME. WILL CONTINUE TO MONITOR THE PATIENT. NEXT DOSE OF DEPAKOTE WILL BE ADMINISTERED IN AM SCHEDULED.
[2021-04-04] MEDS: MAG HYDROX/AL HYDROX/SIMETH 30 ML UDC PO PRN (06:54)
--- NOTE | 2021-04-04 06:56 | NUR ---
RN NOTE: INDIGESTION PATIENT VERBALIZED UPSET STOMACH, PRN MAALOX 30 ML ADMINISTERED. WILL ENDORSE TO AM RN FOR CONTINUITY OF CARE.
[2021-04-04] MEDS: PANTOPRAZOLE 40 MG TABLET.DR PO SCH ×2 (07:30→08:18)
[2021-04-04 08:00] VITALS: BP 106/54
[2021-04-04] MEDS: INSULIN REGULAR, HUMAN 100 UNIT/ML 3 ML VIAL SQ PRN (08:02)
[2021-04-04] MEDS: BLOOD SUGAR DIAGNOSTIC 1 EACH STRIP IN SCH ×4 (08:05→21:44)
[2021-04-04] MEDS: DIVALPROEX SODIUM 125 MG CAP.SPRINK PO SCH ×2 (08:31→09:00)
[2021-04-04] MEDS: DOCUSATE SODIUM 100 MG CAPSULE PO SCH ×3 (08:31→21:29)
[2021-04-04] MEDS: AMOX/CLAVULANATE 875 MG TABLET PO SCH ×3 (08:32→16:48)
[2021-04-04] MEDS: CINACALCET HCL 30 MG TABLET PO SCH ×3 (08:32→16:51)
[2021-04-04] MEDS: risperiDONE 1 MG TABLET PO SCH ×3 (08:32→16:49)
[2021-04-04] MEDS: MULTIVITAMINS,THERAGRAN 1 UDTAB TABLET PO SCH ×2 (08:32→09:00)
[2021-04-04] MEDS: AMLODIPINE BESYLATE 10 MG TABLET PO SCH (08:32)
[2021-04-04] MEDS: CALCITONIN,SALMON,SYNTHETIC 3.7 ML SPRAY.PUMP NS SCH ×2 (08:49→09:00)
[2021-04-04] MEDS: PROSOURCE / PROSTAT (PYXIS) 30 ML UDC PO SCH ×2 (08:49→09:00)
[2021-04-04] MEDS: Z GUARD REMEDY 2 OZ OINT TP SCH ×3 (08:49→09:00)
--- NOTE | 2021-04-04 09:14 | NUR ---
RN NOTE: MEDICATION REFUSAL PT REFUSED AM PO MEDICATIONS. ATTEMPTED TO EDUCATE PT RE IMPORTANCE OF MEDICATION COMPLIANCE INCLUDING PSYCHIATRIC MEDICATIONS AND ANTIBIOTICS. PT CONT'D TO REFUSE X 3. "I WILL NOT TAKE ANY MEDICATIONS UNTIL I TALK TO MY DOCTOR AND MY COOK ITALIAN STYLE FOOD [place]". HALDOL IM ADMINISTERED TO PT'S LEFT GLUTEUS.
--- NOTE | 2021-04-04 11:03 | NUR ---
Discharge Planning: SW contacted pts sister, Gosia Collins, to discuss discharge plans. Pts sister stated that she prefers to D/C pt to [facility] ([phone]). Pt has been accepted to [facility]. SW will continue to follow up with pts discharge plan.
--- NOTE | 2021-04-04 16:36 | NUR ---
RN NOTE: PT REFUSED 1700 ACCUCHECK. ATTEMPTED TO EDUCATE PT RE IMPORTANCE OF BLOOD SUGAR MONITORING. PT CONT''D TO REFUSE X 3. NO S/SX OF HYPER/HYPO GLYCEMIA. WILL CONT TO MONITOR
--- NOTE | 2021-04-04 16:51 | NUR ---
RN NOTE: PT REFUSED SENSIPAR PT REFUSED 1700 DOSE SENSIPAR. PT AGREED TO TAKE 1700 AUGMENTIN AND RISPERDAL.
[2021-04-04 20:00] VITALS: BP 133/68
--- NOTE | 2021-04-04 20:17 | NUR ---
RN NOTE DR. WILLS CALLED TO GET AN UPDATE ABOUT PATIENT'S CURRENT HEALTH CONDITION. UPDATE PROVIDED TO DR. WILLS & WILL CONTINUE TO MONITOR THE PATIENT.
--- NOTE | 2021-04-04 20:24 | NUR ---
RN NOTE ASSISTED PATIENT TO REPOSITION & CONTINENCE CARE PROVIDED, SKIN CREAM APPLIED. OFFERED APPLE JUICE TO THE PATIENT & TOLERATED WELL.
[2021-04-04 20:42] VITALS: BP 133/68
[2021-04-04] MEDS: ATORVASTATIN 40 MG TABLET PO SCH (21:44)
--- NOTE | 2021-04-04 22:15 | NUR ---
RN NOTE PATIENT WAS OFFERED APPLE JUICE & TOLERATED WELL. HOB ELEVATED FOR ASPIRATION PRECAUTION. WILL CONTINUE TO MONITOR FOR SAFETY, MOOD & BEHAVIOR.
[2021-04-05] MEDS: Z GUARD REMEDY 2 OZ OINT TP PRN (03:15)
[2021-04-05] MEDS: BLOOD SUGAR DIAGNOSTIC 1 EACH STRIP IN SCH ×4 (07:35→21:25)
[2021-04-05] MEDS: PANTOPRAZOLE 40 MG TABLET.DR PO SCH (07:35)
[2021-04-05 08:00] VITALS: BP 113/60
[2021-04-05] MEDS: DOCUSATE SODIUM 100 MG CAPSULE PO SCH ×2 (08:47→21:25)
[2021-04-05] MEDS: risperiDONE 1 MG TABLET PO SCH ×2 (08:47→16:58)
[2021-04-05] MEDS: CINACALCET HCL 30 MG TABLET PO SCH ×2 (08:47→16:59)
[2021-04-05] MEDS: MULTIVITAMINS,THERAGRAN 1 UDTAB TABLET PO SCH (08:48)
[2021-04-05] MEDS: AMLODIPINE BESYLATE 10 MG TABLET PO SCH (08:49)
[2021-04-05] MEDS: Z GUARD REMEDY 2 OZ OINT TP SCH ×2 (08:55→09:11)
[2021-04-05] MEDS: PROSOURCE / PROSTAT (PYXIS) 30 ML UDC PO SCH (08:57)
[2021-04-05] MEDS: CALCITONIN,SALMON,SYNTHETIC 3.7 ML SPRAY.PUMP NS SCH (08:58)
[2021-04-05 16:00] VITALS: BP 115/56
[2021-04-05] MEDS: INSULIN REGULAR, HUMAN 100 UNIT/ML 3 ML VIAL SQ PRN ×2 (17:05→21:30)
[2021-04-05 19:50] VITALS: BP 114/52
[2021-04-05] MEDS: ATORVASTATIN 40 MG TABLET PO SCH (21:25)
[2021-04-06] MEDS: BLOOD SUGAR DIAGNOSTIC 1 EACH STRIP IN SCH ×2 (07:47→12:05)
[2021-04-06] MEDS: PANTOPRAZOLE 40 MG TABLET.DR PO SCH (07:59)
[2021-04-06 08:00] VITALS: BP 100/60
[2021-04-06] MEDS: risperiDONE 1 MG TABLET PO SCH ×2 (08:07→17:04)
[2021-04-06] MEDS: CINACALCET HCL 30 MG TABLET PO SCH ×2 (08:07→17:04)
[2021-04-06] MEDS: AMLODIPINE BESYLATE 10 MG TABLET PO SCH (08:07)
[2021-04-06] MEDS: DOCUSATE SODIUM 100 MG CAPSULE PO SCH (08:07)
[2021-04-06] MEDS: MULTIVITAMINS,THERAGRAN 1 UDTAB TABLET PO SCH (08:07)
[2021-04-06] MEDS: CALCITONIN,SALMON,SYNTHETIC 3.7 ML SPRAY.PUMP NS SCH (08:09)
[2021-04-06] MEDS: PROSOURCE / PROSTAT (PYXIS) 30 ML UDC PO SCH (08:09)
[2021-04-06] MEDS: Z GUARD REMEDY 2 OZ OINT TP SCH ×2 (08:12→08:13)
--- NOTE | 2021-04-06 08:13 | NUR ---
RN-NOTES 2ND Z GUARD ORDER WAS DUPLICATE .
--- NOTE | 2021-04-06 12:10 | NUR ---
D/C planning: KATHRYN faxed negative COVID test result to [facility] FAX:[phone] attn: Claudia. KATHRYN also spoke with Claudia to confirm pt. will be discharging to [facility] today. Claudia is agreeable.
--- NOTE | 2021-04-06 14:17 | NUR ---
D/C Planning: KATHRYN called and spoke to Claudia [phone] to update her that the pt. will be discharged from [facility] and taken to [facility] [[address] [place] [address] ; ]. lCaudia expresses understanding and was agreeable to plan.
--- NOTE | 2021-04-06 14:34 | NUR ---
D/C Planning: KATHRYN contacted pt.'s sister, Gosia Collins, and notified her that pt. will be discharged at 5 pm to [facility]. Gosia agreeable and thanked KATHRYN for notice.
--- NOTE | 2021-04-06 15:20 | NUR ---
Discharge Plan: Pt. will be discharged to [facility] ([facility]) located at [address] [place] [address]; ([phone]) today at 5 pm. Pt. will be transported via [facility]. Pt.s sister, Gosia ([phone]), was informed of the discharge and stated she is agreeable. Currently, the pt. has a euthymic mood and presented an anxious affect. Pt. remains calm and cooperative. Pt. denies SI/HI and denies hallucinations. Pt. will be under the care of psychiatrist, Dr. Urias, located at [address] [address], [place] [address]; and her client service administrator, Dr. Calvert, located at [address] [place] [address]; ).
[2021-04-06 16:00] VITALS: BP 106/60
--- NOTE | 2021-04-06 17:44 | NUR ---
RN-DISCHARGE NOTES RECEIVED DISCHARGE ORDER FROM DR. WILLS (PSYCHIATRIST), DR. MIRANDA ( PRESS HAND SUPERVISOR) AWARE WITH ORDERS. REPORT WAS GIVEN TO YU (AGENCY SERVICE COORDINATOR). PATIENT DID NOT VERBALIZE SI/HI,DENIES VISUAL/AUDITORY HALLUCINATIONS AT THE TIME OF DISCHARGE. PATIENT LEFT THE UNITY IN STABLE CONDITION ALERT ORIENTED X2 WITH VS BP 106/60, P66, R18, TEMP. 98 AND O2 SAT 98% RA. PER PATIENT'S SISTER TEVIN [phone] WAS AWARE OF THE DISCHARGE. PATIENT WAS PLATE SHOP HELPER BY AMBULANCE [employer]IA [employer] WITH TWO STAFF ASSIST. ALL BELONGINGS WAS GIVEN BACK TO THE AMBULANCE AND WAS ENDORSED TO THE AMBULANCE STAFF.
== END 2021-04-06 17:43 | DRG 885 ==
LOC: ER 17:20 → GPS 22:14
PROVIDERS: ADMIT Psychiatry & Neurology Psychiatry
DX: F25.0 Schizoaffective disorder, bipolar type (principal); E11.65 Type 2 diabetes mellitus with hyperglycemia; N39.0 Urinary tract infection, site not specified; E44.1 Mild protein-calorie malnutrition; F60.3 Borderline personality disorder; F41.9 Anxiety disorder, unspecified; F03.90 Unspecified dementia, unspecified severity, without behavioral disturbance, psychotic disturbance, mood disturbance, and anxiety; I10 Essential (primary) hypertension; E78.5 Hyperlipidemia, unspecified; E03.9 Hypothyroidism, unspecified; Z79.899 Other long term (current) drug therapy; Z88.8 Allergy status to other drugs, medicaments and biological substances; Z79.84 Long term (current) use of oral hypoglycemic drugs; Z91.81 History of falling; R27.8 Other lack of coordination; F29 Unspecified psychosis not due to a substance or known physiological condition; Z73.6 Limitation of activities due to disability; E83.52 Hypercalcemia; B96.4 Proteus (mirabilis) (morganii) as the cause of diseases classified elsewhere
CPT/HCPCS: 36415; 80048-TC; 80053-TC; 80061-TC; 80076-TC; 82962-TC; 83970; 84100-TC; 85025-TC; 87081-TC; 87086-TC; 87186-TC; 93307-TC; 97112-TC; 97116-TC; 97530-TC; C9803; G0480; J1630; J1815; J2426